=== PATIENT | female | born 1975 | race Caucasian/White ===

== ENCOUNTER 2023-02-28 15:53 | Emergency (ER) | payer SELFPAY ==
[~2023-02-28] VITALS: Ht 152.4 cm; Wt 59.0 kg
[2023-02-28 16:18] VITALS: BP 127/97
== END 2023-02-28 17:52 | disposition home or self-care (01) ==
LOC: ER 15:53
DX: S63.501A Unspecified sprain of right wrist, initial encounter (principal); W22.8XXA Striking against or struck by other objects, initial encounter
CPT/HCPCS: 29125; 73130; 99283-25; A9270